=== PATIENT | male | born 1975 | race African-American/Black ===

== ENCOUNTER 2022-07-26 20:53 | Inpatient (IN) | payer OTHER ==
[2022-07-26 23:05] VITALS: BMI 70.6
[2022-07-26] MEDS ORDERED: Ipratropium/Albuterol 3 ML NEB NEB PRN (23:35)
[2022-07-26] MEDS ORDERED: HumaLOG 300 UNITS/3 ML VIAL SC SCH (23:45)
[2022-07-26] MEDS ORDERED: Electrolyte Replacement Protocol 1 EACH FS PRN (23:45)
[2022-07-27] MEDS ORDERED: Ondansetron PF 4 MG/2 ML Vial IVP PRN (00:32)
[2022-07-27] MEDS: Acetaminophen 325 MG TAB PO PRN ×3 (01:03→23:09)
[2022-07-27] MEDS: cefTRIAXone\\ROCEPHIN 1 GM in Sodium Chloride 0.9% 100 ML IVPB SCH ×2 (01:05→23:09)
[2022-07-27] MEDS: Azithromycin 500 MG in Sodium Chloride 0.9% 250 ML 250 ML IVPB SCH (02:08)
[2022-07-27] MEDS: methylPREDNISolone Sod Succ 40 MG VIAL IVP SCH ×3 (05:29→20:47)
[2022-07-27] MEDS ORDERED: Dextrose 5% in Water 1,000 ML IV PRN ×2 (07:28→18:25)
[2022-07-27] MEDS ORDERED: Dextrose 50% Abboject 50 ML SYRINGE SLOW IVP PRN ×2 (07:28→18:25)
[2022-07-27] MEDS: Furosemide 40 MG/4 ML VIAL SLOW IVP SCH (08:04)
[2022-07-27] MEDS: Famotidine/PF 20 mg/2ml Vial SLOW IVP SCH ×2 (08:04→20:47)
[2022-07-27] MEDS: HumaLOG 300 UNITS/3 ML VIAL SC PRN ×4 (08:16→20:48)
[2022-07-27] MEDS ORDERED: FLU VACC QS2022-23(6MO UP)/PF 60 MCG/0.5 ML SYRINGE IM ONE (09:00)
[2022-07-27 09:21] LABS: ALT (SGPT) 23 U/L (8-55); AST (SGOT) 22 U/L (5-34); Albumin 4.1 g/dL (3.5-5.0); Alkaline Phosphatase 74 U/L (40-110); Anion Gap 18 mmol/L (10-20); BUN (Urea Nitrogen) 10 mg/dL (8.9-20.6); Bilirubin, Total 0.8 mg/dL (0.2-1.2); Calc. Creatinine Clearance 295 mL/min (70-130); Calcium 9.1 mg/dL (7.8-10.44); Carbon Dioxide 32 mmol/L (22-29); Chloride 92 mmol/L (98-107); Estimated GFR 98; Globulin 4.9 g/dL (2.4-3.5); Glucose 297 mg/dL (70-105); Potassium 4.5 mmol/L (3.5-5.1); Sodium 137 mmol/L (136-145)
[2022-07-27 09:25] LABS: #Basophils 0.1 thou/uL (0.0-0.2); #Lymphocytes 0.8 thou/uL (1.20-3.40); #Monocytes 0.2 thou/uL (0.11-0.59); #Neutrophils 4.4 thou/uL (1.40-6.50); %Basophils 1.2 % (0.0-1.0); %Eosinophils 0.7 % (0.0-10.0); %Lymphocytes 14.8 % (21.0-51.0); %Monocytes 3.3 % (0.0-10.0); Hemoglobin 17.3 g/dL (14.0-18.0); Mean Corpuscular HGB CONC 27.7 g/dL (32.0-36.0); Mean Corpuscular Hemoglobin 25.6 pg (27.0-31.0); Mean Corpuscular Volume 92.5 fl (78.0-98.0); Mean Platelet Volume 9.2 fL (7.4-10.4); Platelet Count 216 10x3/uL (130-400); RBC Distribution Width 14.3 % (11.5-14.5); Red Blood Cell (RBC) Count 6.74 mill/uL (4.70-6.10); White Blood Cell (WBC) Count 5.5 10x3/uL (4.8-10.8)
[2022-07-27 09:26] LABS: Hypochromia SLIGHT = 6-15 cells (100X) (0-5/hpf); MDiff Complete? YES; Platelet Morphology Comment Appears Adequate; Polychromasia SLIGHT = 2-3 cells (100X) (0-2/hpf)
[2022-07-27] MEDS ORDERED: Lisinopril 10 MG TAB PO SCH (11:04)
[2022-07-27] MEDS ORDERED: Amlodipine 5 MG TAB PO SCH (11:04)
[2022-07-27] MEDS: Albuterol HFA (OR) 200 PUFF INH INH SCH ×2 (14:32→18:09)
[2022-07-27] MEDS: Ipratropium 200 Puff Oral Inhaler INH SCH ×2 (14:32→18:09)
[2022-07-27] MEDS ORDERED: Furosemide 40 MG in Sodium Chloride 0.9% 90 ML IVPB SCH (19:30)
[2022-07-27] MEDS ORDERED: Furosemide 40 MG/4 ML VIAL SLOW IVP SCH (19:45)
[2022-07-28] MEDS: Ipratropium 200 Puff Oral Inhaler INH SCH ×4 (00:54→18:26)
[2022-07-28] MEDS: Albuterol HFA (OR) 200 PUFF INH INH SCH ×4 (00:54→18:26)
[2022-07-28] MEDS: Azithromycin 500 MG in Sodium Chloride 0.9% 250 ML 250 ML IVPB SCH (01:29)
[2022-07-28 04:21] LABS: #Lymphocytes 1.4 thou/uL (1.20-3.40); #Monocytes 0.6 thou/uL (0.11-0.59); #Neutrophils 6.9 thou/uL (1.40-6.50); %Basophils 0.1 % (0.0-1.0); %Eosinophils 0.3 % (0.0-10.0); %Monocytes 6.2 % (0.0-10.0); %Neutrophils 77.4 % (42.0-75.0); Hemoglobin 17.5 g/dL (14.0-18.0); Mean Corpuscular HGB CONC 30.4 g/dL (32.0-36.0); Mean Corpuscular Hemoglobin 28.1 pg (27.0-31.0); Mean Corpuscular Volume 92.2 fl (78.0-98.0); Platelet Count 202 10x3/uL (130-400); RBC Distribution Width 14.2 % (11.5-14.5); Red Blood Cell (RBC) Count 6.25 mill/uL (4.70-6.10); White Blood Cell (WBC) Count 8.9 10x3/uL (4.8-10.8)
[2022-07-28 04:36] LABS: ALT (SGPT) 18 U/L (8-55); AST (SGOT) 16 U/L (5-34); Albumin 3.9 g/dL (3.5-5.0); Alkaline Phosphatase 61 U/L (40-110); Anion Gap 14 mmol/L (10-20); BUN (Urea Nitrogen) 15 mg/dL (8.9-20.6); Bilirubin, Total 0.6 mg/dL (0.2-1.2); Calc. Creatinine Clearance 289 mL/min (70-130); Calcium 8.8 mg/dL (7.8-10.44); Carbon Dioxide 36 mmol/L (22-29); Chloride 91 mmol/L (98-107); Estimated GFR 96; Globulin 4.2 g/dL (2.4-3.5); Glucose 332 mg/dL (70-105); Potassium 4.5 mmol/L (3.5-5.1); Protein, Total 8.1 g/dL (6.0-8.3); Sodium 136 mmol/L (136-145)
[2022-07-28 05:09] LABS: Hemoglobin A1c 10.5 % (4.0-6.0)
[2022-07-28] MEDS: methylPREDNISolone Sod Succ 40 MG VIAL IVP SCH (05:28)
[2022-07-28] MEDS: HumaLOG 300 UNITS/3 ML VIAL SC PRN ×4 (05:32→21:03)
[2022-07-28] MEDS: Famotidine/PF 20 mg/2ml Vial SLOW IVP SCH ×2 (08:33→20:00)
[2022-07-28] MEDS: Furosemide 40 MG/4 ML VIAL SLOW IVP SCH (08:33)
[2022-07-28] MEDS: metFORMIN 500 MG TAB PO SCH ×2 (08:35→18:38)
[2022-07-28] MEDS: Lisinopril 10 MG TAB PO SCH (08:35)
[2022-07-28] MEDS: Amlodipine 5 MG TAB PO SCH (08:36)
[2022-07-28] MEDS ORDERED: Furosemide 40 MG/4 ML VIAL SLOW IVP SCH (19:00)
[2022-07-28 19:57] LABS: Actual Bicarbonate (HCO3a) 44.2 mEq/L (22-28); Base Excess (BEa) 12.1 mEq/L (-2.0 to +3.0); Calcium, Ionized (arterial) 1.16 mmol/L (1.12-1.30); Carboxyhemoglobin (COHb) 1.1 gm% (0.0-3.0); O2 Tension (PaO2), arterial 81.4 mmHg (80.0-100.0); Potassium - ABG Lab 4.37 mmol/L (3.70-5.30)
[2022-07-28 20:05] LABS: ALV-art Gradient 3.865 mmHg (0-20); Puncture Site RRA
[2022-07-28] MEDS: cefTRIAXone\\ROCEPHIN 1 GM in Sodium Chloride 0.9% 100 ML IVPB SCH (23:07)
[2022-07-29] MEDS: Azithromycin 500 MG in Sodium Chloride 0.9% 250 ML 250 ML IVPB SCH (00:41)
[2022-07-29] MEDS: Ipratropium 200 Puff Oral Inhaler INH SCH ×5 (01:16→22:16)
[2022-07-29] MEDS: Albuterol HFA (OR) 200 PUFF INH INH SCH ×5 (01:16→22:16)
[2022-07-29] MEDS: Acetaminophen 325 MG TAB PO PRN (04:14)
[2022-07-29] MEDS: Furosemide 40 MG/4 ML VIAL SLOW IVP SCH ×2 (05:45→14:33)
[2022-07-29] MEDS: HumaLOG 300 UNITS/3 ML VIAL SC PRN ×3 (05:47→18:28)
[2022-07-29] MEDS ORDERED: methylPREDNISolone Sod Succ 40 MG VIAL IVP SCH (06:00)
[2022-07-29] MEDS: metFORMIN 500 MG TAB PO SCH ×3 (08:53→18:28)
[2022-07-29] MEDS: Lisinopril 10 MG TAB PO SCH (08:53)
[2022-07-29] MEDS: Famotidine/PF 20 mg/2ml Vial SLOW IVP SCH ×2 (08:54→21:09)
[2022-07-29] MEDS: Amlodipine 5 MG TAB PO SCH (08:54)
[2022-07-29] MEDS ORDERED: Furosemide 20 MG TAB PO SCH (09:00)
[2022-07-29 11:58] LABS: CO2 Tension 91.5 mmHg (35.0-45.0)
[2022-07-29 12:04] LABS: Analyzer IN Cardio ER; Base Excess 10.9 mEq/L (-2.0 to +3.0); Calcium, Ionized (venous) 1.04 mmol/L (1.16-1.32); Chloride (VBG) 88 mmol/L (98-106); Hemoglobin (Hb) 18.3 g/dL (13.1-17.2); pH (venous) 7.33 (7.32-7.43)
[2022-07-29 12:07] LABS: Actual Bicarbonate (HCO3v) 42 mEq/L (22-28)
[2022-07-30] MEDS: Acetaminophen 325 MG TAB PO PRN (04:38)
[2022-07-30] MEDS: Furosemide 40 MG/4 ML VIAL SLOW IVP SCH (06:22)
[2022-07-30] MEDS: HumaLOG 300 UNITS/3 ML VIAL SC PRN (06:22)
[2022-07-30] MEDS: Albuterol HFA (OR) 200 PUFF INH INH SCH (06:43)
[2022-07-30] MEDS: Ipratropium 200 Puff Oral Inhaler INH SCH (06:43)
[2022-07-30 07:19] VITALS: TEMP 98.3
[2022-07-30] MEDS ORDERED: predniSONE 20 MG TAB PO SCH (08:00)
[2022-07-30] MEDS: Famotidine/PF 20 mg/2ml Vial SLOW IVP SCH (08:59)
[2022-07-30] MEDS: Lisinopril 10 MG TAB PO SCH (09:01)
[2022-07-30] MEDS: metFORMIN 500 MG TAB PO SCH (09:02)
[2022-07-30] MEDS: Amlodipine 5 MG TAB PO SCH (09:03)
[2022-07-30 13:07] VITALS: BP 134/93
== END 2022-07-30 13:39 | disposition home or self-care (01) | DRG 205 ==
LOC: IMCU/EMU 20:53 → UNDOADMIN 20:53 → IMCU/EMU 07-27 00:32
PROVIDERS: ADMIT Internal Medicine; ATTEND Internal Medicine
PROC: 5A09357 Assistance with Respiratory Ventilation, Less than 24 Consecutive Hours, Continuous Positive Airway Pressure (ICD-10-PCS; principal; 2022-07-27)
DX: E66.2 Morbid (severe) obesity with alveolar hypoventilation (principal); J18.9 Pneumonia, unspecified organism; J96.21 Acute and chronic respiratory failure with hypoxia; J96.22 Acute and chronic respiratory failure with hypercapnia; E87.4 Mixed disorder of acid-base balance; Z68.44 Body mass index [BMI] 60.0-69.9, adult; J44.1 Chronic obstructive pulmonary disease with (acute) exacerbation; J44.0 Chronic obstructive pulmonary disease with (acute) lower respiratory infection; Z20.822 Contact with and (suspected) exposure to COVID-19; E11.51 Type 2 diabetes mellitus with diabetic peripheral angiopathy without gangrene; I11.0 Hypertensive heart disease with heart failure; I50.9 Heart failure, unspecified; Z28.21 Immunization not carried out because of patient refusal; Z79.899 Other long term (current) drug therapy; Z82.49 Family history of ischemic heart disease and other diseases of the circulatory system
CPT/HCPCS: 36415; 36416; 36600; 71045; 80053; 82805; 83036; 84145; 85025; 94660; J0456; J0696; J1650; J1815; J1940; J2920; J3490; J7050; J7512; S0028; U0003; U0005